=== PATIENT | male | born 1985 | race Caucasian/White ===

== ENCOUNTER 2017-12-17 22:41 | Emergency (ER) | payer SELFPAY ==
[2017-12-17] MEDS ORDERED: Dexamethasone 10 MG/ML VIAL ONE (23:13)
--- NOTE | 2017-12-17 23:56 | RAD ---
TWO VIEWS OF THE CHEST 12/17/17 COMPARISON: None. HISTORY: Cough and congestion. FINDINGS: No pneumothorax, pleural fluid, focal consolidation, or alveolar edema. Heart and mediastinal contour s are unremarkable. IMPRESSION: No acute findings. POS: [facility]
== END 2017-12-18 00:45 | disposition home or self-care (01) ==
LOC: ERS 22:41
DX: R06.2 Wheezing (principal); F17.210 Nicotine dependence, cigarettes, uncomplicated
CPT/HCPCS: 71046; 94640; J1100; J7620

== ENCOUNTER 2019-08-11 08:06 | Emergency (ER) | payer OTHER, SELFPAY ==
[2019-08-11] MEDS ORDERED: cefTRIAXone\\ROCEPHIN 250 MG VIAL ONE (10:13)
[2019-08-11] MEDS ORDERED: Lidocaine 1% (PF) 30 ML VIAL ONE (10:13)
--- NOTE | 2019-08-11 10:17 | ULT ---
TESTICULAR ULTRASOUND WITH MONAE SCALE AND COLOR FLOW AND SPECTRAL DOPPLER IMAGING: Date: 08/11/19 HISTORY: Palpable area and painful region in right scrotum. FINDINGS: The right testis measures 4.8 x 2.8 x 4.2 cm. The left testis measures 4.8 x 3.0 x 3.1 cm. No focal m ass is seen. The epididymides demonstrate no evidence of mass. Flow is demonstrated to both testes and epididymides with increased vascularity in the inferior aspec t of the tail of the right epididymis. No hydrocele is seen. IMPRESSION: Findings are suspicious for right-sided epididymitis. POS: [facility]
== END 2019-08-11 10:10 | disposition home or self-care (01) ==
LOC: ERS 08:06
DX: N45.1 Epididymitis (principal); B35.2 Tinea manuum; F17.210 Nicotine dependence, cigarettes, uncomplicated
CPT/HCPCS: 76870; 93976; 96372; J0696; J2001